=== PATIENT | female | born 2000 | race Two or more races ===

== ENCOUNTER → 2022-08-24 | Outpatient (CLI) | payer OTHER ==
[2022-08-24 17:37] LABS: HEMATOCRIT 37.1 % (36.0-47.0); HEMOGLOBIN 12.3 g/dl (12.0-15.5); MEAN CORPUSCULAR HEMOGLOBIN 28.1 pg (27.0-33.0); MEAN CORPUSCULAR HGB CONC 33.2 g/dl (32.0-36.5); MEAN CORPUSCULAR VOLUME 84.9 fl (80.0-96.0); PLATELET COUNT, AUTOMATED 285 10^3/uL (150-450); RED BLOOD COUNT 4.37 10^6/uL (4.00-5.40); WHITE BLOOD COUNT 11.2 10^3/uL (4.0-10.0)
[2022-08-24 18:31] LABS: HIV 1&2 SCREEN CENTAUR NEGATIVE (NEGATIVE)
[2022-08-24 18:40] LABS: HEPATITIS C VIRUS ABY INDEX 0.1 INDEX (<0.8)
[2022-08-24 18:47] LABS: GC DNA AMPLIFICATION NEGATIVE (NEGATIVE)
== END ==
LOC: M PLALAB 14:55
PROVIDERS: ATTEND Advanced Practice Midwife
DX: Z36.89 Encounter for other specified antenatal screening (principal)

== ENCOUNTER → 2022-09-07 | Outpatient (CLI) | payer OTHER | LOC: M WHC 14:53 → EDUNIT# 15:00 | PROVIDERS: ATTEND Advanced Practice Midwife | DX: O43.892 Other placental disorders, second trimester (principal); Z3A.23 23 weeks gestation of pregnancy ==

== ENCOUNTER → 2022-11-08 | Outpatient (CLI) | payer OTHER ==
[2022-11-08 14:07] LABS: HEMATOCRIT 35.8 % (36.0-47.0); HEMOGLOBIN 11.3 g/dl (12.0-15.5); MEAN CORPUSCULAR HEMOGLOBIN 26.4 pg (27.0-33.0); MEAN CORPUSCULAR HGB CONC 31.6 g/dl (32.0-36.5); MEAN CORPUSCULAR VOLUME 83.6 fl (80.0-96.0); PLATELET COUNT, AUTOMATED 259 10^3/uL (150-450); RED BLOOD COUNT 4.28 10^6/uL (4.00-5.40); WHITE BLOOD COUNT 14.7 10^3/uL (4.0-10.0)
[2022-11-08 16:31] LABS: GC DNA AMPLIFICATION NEGATIVE (NEGATIVE)
== END ==
LOC: M PLALAB 09:38
PROVIDERS: ATTEND Advanced Practice Midwife
DX: O09.30 Supervision of pregnancy with insufficient antenatal care, unspecified trimester (principal); N94.10 Unspecified dyspareunia; Z3A.00 Weeks of gestation of pregnancy not specified
CPT/HCPCS: 36415; 82950; 85027; 86850; 86900; 86901; 87070; 87077; 87810; 87850; G0463

== ENCOUNTER → 2022-12-05 | Outpatient (CLI) | payer OTHER | LOC: M WHC 09:04 | PROVIDERS: ATTEND Advanced Practice Midwife | DX: O09.30 Supervision of pregnancy with insufficient antenatal care, unspecified trimester (principal); Z3A.36 36 weeks gestation of pregnancy ==

== ENCOUNTER → 2022-12-06 | Outpatient (REF) | payer OTHER ==
[~2022-12-06] MED LIST: PRENMIS3 PO; PRENTAB9 PO
== END ==
LOC: M PLALAB 09:33
PROVIDERS: ATTEND Advanced Practice Midwife
DX: Z36.85 Encounter for antenatal screening for Streptococcus B (principal)
CPT/HCPCS: 87081; G0463

== ENCOUNTER 2022-12-23 09:37 | Outpatient (CLI) | payer OTHER ==
[~2022-12-23] VITALS: Ht 162.6 cm; Wt 93.4 kg
[2022-12-23] MEDS ORDERED: PRENMIS3 PO (09:52)
[2022-12-23 09:57] VITALS: BP 129/80
[2022-12-23 10:30] VITALS: BP 127/82
[2022-12-23 11:38] VITALS: BP 122/79
== END 2022-12-23 11:48 | disposition home or self-care (01) ==
LOC: M LDO 09:37
PROVIDERS: ATTEND Obstetrics & Gynecology
DX: O26.853 Spotting complicating pregnancy, third trimester (principal); O47.1 False labor at or after 37 completed weeks of gestation; Z3A.38 38 weeks gestation of pregnancy
CPT/HCPCS: 59025; G0463

== ENCOUNTER 2022-12-27 03:59 | Inpatient (IN) | payer OTHER ==
[~2022-12-27] VITALS: Ht 162.6 cm; Wt 94.3 kg
[2022-12-27] VITALS (25 sets, daily range): BP systolic 101–139; BP diastolic 55–76
[~2022-12-27 03:59] MED LIST changes: -PRENTAB9 PO
[2022-12-27] MEDS ORDERED: PRENTAB9 PO (04:24)
[2022-12-27] MEDS ORDERED: HOME MED LIST COMPLETE! XX SCH (04:30)
[2022-12-27] MEDS ORDERED: LR 1,000 ML IV SCH (05:00)
[2022-12-27] MEDS ORDERED: LACTATED RINGER'S 1000 ML IV STA (05:00)
[2022-12-27] MEDS ORDERED: LIDOCAINE 1% MDV 20ML VIAL INFIL PRN (05:00)
[2022-12-27] MEDS ORDERED: OXYTOCIN DRIP 30 UNITS in IV 1 EA IV PRN (05:00)
[2022-12-27 05:57] LABS: HEMATOCRIT 35.3 % (36.0-47.0); HEMOGLOBIN 11.1 g/dl (12.0-15.5); MEAN CORPUSCULAR HEMOGLOBIN 24.6 pg (27.0-33.0); MEAN CORPUSCULAR HGB CONC 31.4 g/dl (32.0-36.5); MEAN CORPUSCULAR VOLUME 78.3 fl (80.0-96.0); PLATELET COUNT, AUTOMATED 278 10^3/uL (150-450); RED BLOOD COUNT 4.51 10^6/uL (4.00-5.40)
[2022-12-27] MEDS ORDERED: ONDANSETRON 4MG 2ML VIAL IV PRN (06:30)
[2022-12-27] MEDS ORDERED: diphenhydrAMINE 50MG/ML VIAL IV PRN (06:30)
[2022-12-27] MEDS ORDERED: LR 500 ML IV PRN (06:30)
[2022-12-27] MEDS ORDERED: NALOXONE INJ 0.4MG/1ML VIAL IV PRN (06:30)
[2022-12-27] MEDS ORDERED: ePHEDrine SULFATE 25 MG/5 ML(5MG/ML) SYRINGE IVP PRN (06:30)
[2022-12-27] MEDS ORDERED: EPIDURAL/PCA KEYS XX PRN (06:30)
[2022-12-27] MEDS ORDERED: FENTANYL/ROPIVACAINE/NACL BAG 100 ML EPIDURAL SCH (06:30)
[2022-12-27] MEDS ORDERED: IBUPROFEN 800 MG TAB PO PRN (09:00)
[2022-12-27] MEDS ORDERED: ACETAMINOPHEN 500 MG TAB PO PRN (09:00)
[2022-12-27] MEDS ORDERED: DOCUSATE SODIUM 100MG CAPSULE PO PRN (09:00)
[2022-12-27] MEDS: PRENATAL VITAMINS CHEWABLE TABLET PO SCH (09:00)
[2022-12-27] MEDS ORDERED: RHOGAM 300MCG (1500IU) INJ IM SCH (09:00)
[2022-12-27] MEDS ORDERED: OXYTOCIN DRIP 30 UNITS in IV 1 EA IV SCH (09:00)
[2022-12-27] MEDS ORDERED: DIBUCAINE 1% OINTMENT 30GM TOP PRN (09:00)
[2022-12-27] MEDS ORDERED: METHYLERGONOVINE MALEATE 0.2 MG TAB PO PRN (09:00)
[2022-12-27] MEDS ORDERED: IBUPROFEN 600MG TAB PO PRN (09:00)
[2022-12-27] MEDS ORDERED: ACETAMINOPHEN TAB 650MG DOSE (2X325MG) PO PRN (09:00)
[2022-12-28 06:00] VITALS: BP 112/69
[2022-12-28] MEDS: PRENATAL VITAMINS CHEWABLE TABLET PO SCH (08:02)
[2022-12-29] MEDS ORDERED: MEASLES,MUMPS,RUBELLA VACCINE INJ (MMR-II) SC.IMMUN ONE (09:00)
== END 2022-12-28 14:30 | disposition home or self-care (01) | DRG 807 ==
LOC: M LDO 03:59 → M LDI 04:55 → M OBS 10:44
PROVIDERS: ADMIT Specialist; ATTEND Specialist
PROC: 10E0XZZ Delivery of Products of Conception, External Approach (ICD-10-PCS; principal; 2022-12-27)
DX: O69.82X0 Labor and delivery complicated by other cord entanglement, without compression, not applicable or unspecified (principal); Z37.0 Single live birth; Z3A.39 39 weeks gestation of pregnancy

== ENCOUNTER → 2025-02-25 | Outpatient (REF) | payer OTHER ==
[~2025-02-25] MED LIST changes: +PRENTAB9 PO
== END ==
LOC: M PLALAB 14:57
PROVIDERS: ATTEND Nurse Practitioner Family
DX: R30.0 Dysuria (principal)